=== PATIENT | male | born 1940 | race Caucasian/White ===

== ENCOUNTER → 2016-12-14 | Outpatient (CLI) | payer MEDICARE, OTHER ==
[~2016-12-14] MED LIST: AMIO200T PO; ASPI-496 PO; ASPI-650 PO; DOCU-131 PO; ENAL20TA PO; FURO-92 PO; HYDR-3240 PO; IMIP50TA3 PO; LEVO500T47 PO; METO25TA35 PO; MULT400T5 PO; RABE20TA18 PO; VIT500LI PO
== END | disposition home or self-care (01) ==
LOC: WOUND 13:39
PROVIDERS: ATTEND Internal Medicine Infectious Disease
DX: S81.802A Unspecified open wound, left lower leg, initial encounter (principal); E78.4 Other hyperlipidemia; I10 Essential (primary) hypertension; I70.0 Atherosclerosis of aorta; Z86.718 Personal history of other venous thrombosis and embolism; K21.9 Gastro-esophageal reflux disease without esophagitis; X58.XXXA Exposure to other specified factors, initial encounter; Y93.89 Activity, other specified; Y92.89 Other specified places as the place of occurrence of the external cause; Y99.8 Other external cause status
CPT/HCPCS: 15271; G0463; Q4172; WOU0463

== ENCOUNTER → 2017-01-04 | Outpatient (CLI) | payer MEDICARE, OTHER | END | disposition home or self-care (01) | LOC: WOUND 08:55 | PROVIDERS: ATTEND Internal Medicine | DX: L97.222 Non-pressure chronic ulcer of left calf with fat layer exposed (principal); I10 Essential (primary) hypertension; I70.0 Atherosclerosis of aorta; K21.9 Gastro-esophageal reflux disease without esophagitis; I35.1 Nonrheumatic aortic (valve) insufficiency; E78.00 Pure hypercholesterolemia, unspecified; I25.10 Atherosclerotic heart disease of native coronary artery without angina pectoris; Z95.4 Presence of other heart-valve replacement; Z86.718 Personal history of other venous thrombosis and embolism | CPT/HCPCS: 15271; Q4172 ==

== ENCOUNTER → 2017-01-11 | Outpatient (CLI) | payer MEDICARE, OTHER | END | disposition home or self-care (01) | LOC: WOUND 08:30 | PROVIDERS: ATTEND Internal Medicine | DX: L97.222 Non-pressure chronic ulcer of left calf with fat layer exposed (principal); E78.4 Other hyperlipidemia; I10 Essential (primary) hypertension; I35.1 Nonrheumatic aortic (valve) insufficiency; I70.0 Atherosclerosis of aorta; Z95.4 Presence of other heart-valve replacement; K21.9 Gastro-esophageal reflux disease without esophagitis; I25.10 Atherosclerotic heart disease of native coronary artery without angina pectoris; E78.00 Pure hypercholesterolemia, unspecified; Z86.718 Personal history of other venous thrombosis and embolism | CPT/HCPCS: 97597 ==

== ENCOUNTER → 2017-01-17 | Outpatient (CLI) | payer MEDICARE, OTHER | END | disposition home or self-care (01) | LOC: CFH 08:54 | PROVIDERS: ATTEND Internal Medicine Cardiovascular Disease | DX: R06.00 Dyspnea, unspecified (principal) | CPT/HCPCS: 71020 ==

== ENCOUNTER → 2017-01-18 | Outpatient (CLI) | payer MEDICARE, OTHER | END | disposition home or self-care (01) | LOC: WOUND 08:30 | PROVIDERS: ATTEND Internal Medicine Cardiovascular Disease | DX: L97.222 Non-pressure chronic ulcer of left calf with fat layer exposed (principal); K21.9 Gastro-esophageal reflux disease without esophagitis; E78.4 Other hyperlipidemia; I10 Essential (primary) hypertension; I70.0 Atherosclerosis of aorta; I35.1 Nonrheumatic aortic (valve) insufficiency; I25.10 Atherosclerotic heart disease of native coronary artery without angina pectoris; Z95.4 Presence of other heart-valve replacement; Z86.718 Personal history of other venous thrombosis and embolism | CPT/HCPCS: 29581 ==

== ENCOUNTER → 2017-01-25 | Outpatient (CLI) | payer MEDICARE, OTHER | END | disposition home or self-care (01) | LOC: WOUND 14:25 | PROVIDERS: ATTEND Surgery | DX: L97.222 Non-pressure chronic ulcer of left calf with fat layer exposed (principal); E78.4 Other hyperlipidemia; I10 Essential (primary) hypertension; K21.9 Gastro-esophageal reflux disease without esophagitis; I25.10 Atherosclerotic heart disease of native coronary artery without angina pectoris; E03.9 Hypothyroidism, unspecified; I70.0 Atherosclerosis of aorta; E78.00 Pure hypercholesterolemia, unspecified; Z86.718 Personal history of other venous thrombosis and embolism; Z95.4 Presence of other heart-valve replacement; Z72.89 Other problems related to lifestyle; Z87.891 Personal history of nicotine dependence | CPT/HCPCS: 97597 ==

== ENCOUNTER → 2017-02-01 | Outpatient (CLI) | payer MEDICARE, OTHER | END | disposition home or self-care (01) | LOC: WOUND 08:23 | PROVIDERS: ATTEND Internal Medicine | DX: L97.222 Non-pressure chronic ulcer of left calf with fat layer exposed (principal); I70.0 Atherosclerosis of aorta; I10 Essential (primary) hypertension; E78.00 Pure hypercholesterolemia, unspecified; I35.1 Nonrheumatic aortic (valve) insufficiency; K21.9 Gastro-esophageal reflux disease without esophagitis; I25.10 Atherosclerotic heart disease of native coronary artery without angina pectoris; Z86.718 Personal history of other venous thrombosis and embolism; Z87.891 Personal history of nicotine dependence; Z72.89 Other problems related to lifestyle | CPT/HCPCS: 97597 ==

== ENCOUNTER → 2017-02-16 | Outpatient (CLI) | payer MEDICARE, OTHER | END | disposition home or self-care (01) | LOC: WOUND 08:30 | PROVIDERS: ATTEND Internal Medicine | DX: L97.222 Non-pressure chronic ulcer of left calf with fat layer exposed (principal); I70.0 Atherosclerosis of aorta; I10 Essential (primary) hypertension; I35.1 Nonrheumatic aortic (valve) insufficiency; K21.9 Gastro-esophageal reflux disease without esophagitis; I25.10 Atherosclerotic heart disease of native coronary artery without angina pectoris; E78.00 Pure hypercholesterolemia, unspecified; E03.9 Hypothyroidism, unspecified; Z86.718 Personal history of other venous thrombosis and embolism; Z95.4 Presence of other heart-valve replacement; Z72.89 Other problems related to lifestyle | CPT/HCPCS: G0463; WOU0463 ==

== ENCOUNTER → 2017-05-25 | Outpatient (CLI) | payer MEDICARE, OTHER | END | disposition home or self-care (01) | LOC: CARD 12:19 | PROVIDERS: ATTEND Nurse Practitioner Family | DX: R06.02 Shortness of breath (principal) | CPT/HCPCS: 94060; 94726; 94729 ==

== ENCOUNTER → 2018-07-07 | Outpatient (CLI) | payer MEDICARE, OTHER | END | disposition home or self-care (01) | LOC: CVU 12:36 | PROVIDERS: ATTEND Internal Medicine Cardiovascular Disease | DX: I08.8 Other rheumatic multiple valve diseases (principal) | CPT/HCPCS: 93306 ==

== ENCOUNTER 2018-08-09 14:47 | Inpatient (IN) | payer MEDICARE, OTHER ==
[~2018-08-09] VITALS: Ht 182.9 cm; Wt 87.0 kg
--- NOTE | 2018-08-09 14:57 | NUR ---
LEFT ARM 104/56, RIGHT ARM 109/54
--- NOTE | 2018-08-09 15:08 | NUR ---
PT RESTING COMFORTABLE IN ROOM W . VS STABLE. AFREBILE. NO PAIN OR ANY OTHER COMPLAINTS. WILL CONTINUE TO MONITOR AND WAIT FOR MD ORDERS
[2018-08-09 15:46] LABS: MEAN CORPUSCULAR HEMOGLOBIN 34.6 pg (27.5-34.5); MEAN CORPUSCULAR HGB CONC 32.7 g/dL (33.2-36.2); MEAN CORPUSCULAR VOLUME 105.6 fL (81-97); MEAN PLATELET VOLUME 7.6 fL (7.4-10.4); PLATELET COUNT 159 x10^3/uL (130-400); RED BLOOD COUNT 4.63 x10^6/uL (4.38-5.82); RED CELL DISTRIBUTION WIDTH 13.9 % (9.4-14.8)
[2018-08-09 15:59] LABS: ALBUMIN 3.3 g/dL (3.4-5.0); ANION GAP 8 mmol/L (5-15); CHLORIDE 100 mmol/L (98-107)
[2018-08-09 16:04] LABS: TROPONIN I 0.059 ng/mL (0.000-0.045)
[2018-08-09 16:11] LABS: BASOPHILS # (AUTO) 0.02 x10^3/uL (0-0.1); BASOPHILS % (AUTO) 0 % (0-1); EOSINOPHILS % (AUTO) 0 % (1-7); LYMPHOCYTES % (AUTO) 4 % (22-44); MD SCAN; MONOCYTES # (AUTO) 0.72 x10^3/uL (0.2-0.8); MONOCYTES % (AUTO) 6 % (2-9); NEUTROPHILS # (AUTO) 11.42 x10^3/uL (1.8-6.8); NEUTROPHILS % (AUTO) 90 % (42-75)
[2018-08-09 16:26] LABS: MICROSCOPIC INDICATED
[2018-08-09] MEDS ORDERED: OMNIPAQUE 350 MG/ML, 100ML BOTTLE ONE (16:43)
[2018-08-09 17:05] LABS: CULTURE INDICATED? YES
--- NOTE | 2018-08-09 17:22 | NUR ---
PT AMBULATED TO BATHROOM W RN. IS TO TAKE BELONGINGS.
[2018-08-09] MEDS ORDERED: FURO20TA3 PO (17:59)
[2018-08-09] MEDS ORDERED: AMIO200T42 PO (17:59)
[2018-08-09] MEDS ORDERED: TAMS-11 PO (17:59)
[2018-08-09] MEDS ORDERED: LEVO75TA PO (17:59)
[2018-08-09] MEDS ORDERED: CEFTRIAXONE PMX 1GM/50ML 50 ML IV ONE (18:00)
--- NOTE | 2018-08-09 18:03 | NUR ---
BLOOD CULTURES DONE. HOME MEDS REVIEWED. PT COMFORTABLE
[2018-08-09] MEDS ORDERED: AZITHROMYCIN 500 MG in SODIUM CHLORIDE 0.9% 250 ML IV ONE (18:30)
[2018-08-09] MEDS ORDERED: ACETAMINOPHEN 325 MG TABLET PO PRN (18:30)
[2018-08-09] MEDS ORDERED: ONDANSETRON 2MG/ML, 2ML IVPush PRN (18:30)
[2018-08-09] MEDS ORDERED: GUAIFENESIN/DM 200-20MG, 10ML UDC PO PRN (18:30)
[2018-08-09] MEDS ORDERED: NITROGLYCERIN 0.4 MG BOTTLE (25 TABS) SL PRN (18:30)
[2018-08-09] MEDS ORDERED: morphine SULFATE 10 MG/ML, 1ML IVPush PRN (18:30)
[2018-08-09] MEDS: AZITHROMYCIN 500 MG in SODIUM CHLORIDE 0.9% 250 ML IV SCH (18:30)
[2018-08-09] MEDS ORDERED: BISACODYL 10 MG SUPP PR PRN (18:30)
[2018-08-09] MEDS ORDERED: POLYETHYLENE GLYCOL 17 GM PACKET PO PRN (18:30)
[2018-08-09] MEDS ORDERED: HYDROcodone/APAP 5/325 TABLET PO PRN (18:30)
--- NOTE | 2018-08-09 18:50 | NUR ---
REPORT GIVEN TO FRANCO ON TELE. ABX INFUSING. PT COMFORTABLE. VS STABLE
--- NOTE | 2018-08-09 19:00 | NUR ---
REPORT OF PT FROM DILSHAD DUNCAN AND ASSUMING CARE OF PT AT THIS TIME.
[2018-08-09] MEDS ORDERED: HEPARIN 5,000 UNITS/ML, 1ML IV ONE (19:30)
[2018-08-09 20:00] VITALS: BP 126/75
[2018-08-09 22:06] LABS: TROPONIN I 0.046 ng/mL (0.000-0.045)
[2018-08-09] MEDS: HEPARIN 25,000 UNITS/500ML PMX 500 ML IV PRN (22:16)
[2018-08-09] MEDS: ENALAPRIL 20MG TABLET PO SCH (22:33)
[2018-08-09] MEDS: METOPROLOL TARTRATE 25 MG TABLET PO SCH (22:37)
[2018-08-09] MEDS: AMIODARONE 200 MG TABLET PO SCH (22:38)
[2018-08-09] MEDS: PANTOPROZOLE 40MG TABLET PO SCH (22:38)
[2018-08-09] MEDS: SODIUM CHLORIDE 0.9% 1,000 ML IV SCH (23:11)
[2018-08-10 00:57] VITALS: BP 132/72
[2018-08-10 04:48] LABS: MEAN CORPUSCULAR HEMOGLOBIN 35.9 pg (27.5-34.5); MEAN CORPUSCULAR HGB CONC 33.7 g/dL (33.2-36.2); MEAN CORPUSCULAR VOLUME 106.5 fL (81-97); MEAN PLATELET VOLUME 7.9 fL (7.4-10.4); PLATELET COUNT 156 x10^3/uL (130-400); RED CELL DISTRIBUTION WIDTH 13.8 % (9.4-14.8)
[2018-08-10 05:02] LABS: CHLORIDE 100 mmol/L (98-107)
[2018-08-10 05:08] LABS: ALANINE AMINOTRANSFERASE 39 U/L (12-78); ALBUMIN 2.4 g/dL (3.4-5.0); ALKALINE PHOSPHATASE 88 U/L (45-117); ANION GAP 7 mmol/L (5-15); BILIRUBIN,TOTAL 0.8 mg/dL (0.2-1.0); CALCIUM 8.1 mg/dL (8.5-10.1); CHOL/HDL RATIO 2.3; CHOLESTEROL, TOTAL 61 mg/dL (140-239); CREATININE 1.17 mg/dL (0.7-1.3); HDL CHOL % 43 % (26-37); HDL CHOLESTEROL (DIRECT) 26 mg/dL (40-60); LDL CHOLESTEROL,CALCULATED 23 mg/dL (54-169); LDL/HDL RATIO 0.9 (0.5-3.0); TRIGLYCERIDES 62 mg/dL (50-200); TROPONIN I 0.037 ng/mL (0.000-0.045); VLDL CHOLESTEROL 12 mg/dL (0-25)
[2018-08-10 05:38] LABS: BASOPHILS % (AUTO) 0 % (0-1); EOSINOPHILS % (AUTO) 0 % (1-7); LYMPHOCYTES # (AUTO) 0.42 x10^3/uL (1-3.4); LYMPHOCYTES % (AUTO) 4 % (22-44); MD SCAN; MONOCYTES # (AUTO) 0.42 x10^3/uL (0.2-0.8); MONOCYTES % (AUTO) 4 % (2-9); NEUTROPHILS # (AUTO) 9.04 x10^3/uL (1.8-6.8); NEUTROPHILS % (AUTO) 92 % (42-75)
[2018-08-10] MEDS: ASPIRIN 81 MG TABLET EC PO SCH (06:06)
[2018-08-10] MEDS: HEPARIN 5,000 UNITS/ML, 1ML IV PRN ×3 (06:06→21:52)
[2018-08-10] MEDS: LEVOTHYROXINE 75 MCG TABLET PO SCH (06:06)
[2018-08-10] MEDS: METOPROLOL TARTRATE 25 MG TABLET PO SCH ×2 (06:09→18:04)
[2018-08-10 07:35] VITALS: BP 136/73
[2018-08-10] MEDS: SENNA/DOCUSATE TABLET PO SCH (08:39)
[2018-08-10] MEDS: PANTOPROZOLE 40MG TABLET PO SCH ×2 (08:39→21:49)
[2018-08-10] MEDS: AMIODARONE 200 MG TABLET PO SCH ×2 (08:40→21:49)
[2018-08-10] MEDS: MULTIVITAMIN 1 TABLET PO SCH (08:41)
[2018-08-10] MEDS: ASCORBIC ACID 500 MG TABLET PO SCH ×2 (08:41→08:46)
[2018-08-10] MEDS: TAMSULOSIN 0.4 MG CAP.ER.24H PO SCH (08:41)
[2018-08-10] MEDS: ENALAPRIL 20MG TABLET PO SCH ×2 (08:41→21:49)
[2018-08-10] MEDS: IMIPRAMINE 50 MG TABLET PO SCH ×2 (08:42→08:46)
[2018-08-10] MEDS ORDERED: FUROSEMIDE 20 MG TABLET PO SCH (09:00)
[2018-08-10] MEDS: SODIUM CHLORIDE 0.9% 1,000 ML IV SCH (09:10)
[2018-08-10] MEDS ORDERED: MAGNESIUM SULFATE PMX 2GM/50ML 50 ML IV ONE (10:00)
[2018-08-10 13:25] VITALS: BP 137/71
[2018-08-10] MEDS ORDERED: CEFTRIAXONE PMX 1GM/50ML 50 ML IV SCH (18:00)
[2018-08-10] MEDS: AZITHROMYCIN 500 MG in SODIUM CHLORIDE 0.9% 250 ML IV SCH (18:03)
[2018-08-10 19:14] VITALS: BP 132/75
[2018-08-10] MEDS: HEPARIN 25,000 UNITS/500ML PMX 500 ML IV PRN (21:56)
[2018-08-11 01:15] VITALS: BP 136/66
[2018-08-11 05:29] LABS: BASOPHILS # (AUTO) 0.01 x10^3/uL (0-0.1); BASOPHILS % (AUTO) 0 % (0-1); EOSINOPHILS % (AUTO) 0 % (1-7); LYMPHOCYTES # (AUTO) 0.54 x10^3/uL (1-3.4); LYMPHOCYTES % (AUTO) 7 % (22-44); MD NO; MEAN CORPUSCULAR HEMOGLOBIN 35.1 pg (27.5-34.5); MEAN CORPUSCULAR HGB CONC 33.2 g/dL (33.2-36.2); MEAN CORPUSCULAR VOLUME 105.7 fL (81-97); MEAN PLATELET VOLUME 8.1 fL (7.4-10.4); MONOCYTES % (AUTO) 8 % (2-9); NEUTROPHILS # (AUTO) 6.67 x10^3/uL (1.8-6.8); NEUTROPHILS % (AUTO) 85 % (42-75); PLATELET COUNT 159 x10^3/uL (130-400); RED BLOOD COUNT 4.07 x10^6/uL (4.38-5.82); RED CELL DISTRIBUTION WIDTH 14.4 % (9.4-14.8)
[2018-08-11 05:34] LABS: CHLORIDE 100 mmol/L (98-107)
[2018-08-11 05:40] LABS: ANION GAP 5 mmol/L (5-15); CALCIUM 8.2 mg/dL (8.5-10.1); CREATININE 1.04 mg/dL (0.7-1.3)
[2018-08-11] MEDS: ASPIRIN 81 MG TABLET EC PO SCH (06:22)
[2018-08-11] MEDS: METOPROLOL TARTRATE 25 MG TABLET PO SCH (06:22)
[2018-08-11] MEDS: LEVOTHYROXINE 75 MCG TABLET PO SCH (06:23)
[2018-08-11] MEDS: HEPARIN 5,000 UNITS/ML, 1ML IV PRN (06:23)
[2018-08-11 07:30] VITALS: BP 127/67
[2018-08-11] MEDS: MULTIVITAMIN 1 TABLET PO SCH (08:48)
[2018-08-11] MEDS: ASCORBIC ACID 500 MG TABLET PO SCH (08:48)
[2018-08-11] MEDS: TAMSULOSIN 0.4 MG CAP.ER.24H PO SCH (08:49)
[2018-08-11] MEDS: ENALAPRIL 20MG TABLET PO SCH (08:49)
[2018-08-11] MEDS: PANTOPROZOLE 40MG TABLET PO SCH (08:49)
[2018-08-11] MEDS: AMIODARONE 200 MG TABLET PO SCH (08:50)
[2018-08-11] MEDS: SENNA/DOCUSATE TABLET PO SCH (08:50)
[2018-08-11] MEDS ORDERED: IMIPRAMINE 25 MG TABLET PO SCH (09:00)
[2018-08-11] MEDS ORDERED: FUROSEMIDE 20 MG TABLET PO SCH (09:00)
[2018-08-11] MEDS ORDERED: AZIT500T5 PO (12:08)
[2018-08-11] MEDS ORDERED: APIX5TAB PO (12:08)
[2018-08-11] MEDS ORDERED: CEFD300C37 PO (12:08)
[2018-08-11] MEDS ORDERED: ASPI-515 PO (12:44)
== END 2018-08-11 13:50 | disposition home or self-care (01) | DRG 871 ==
LOC: ED 15:12 → EDIP 17:43 → 5SO 19:02 → DCLOUNGE 08-11 12:54
PROVIDERS: ADMIT Internal Medicine; ATTEND Internal Medicine
DX: A41.9 Sepsis, unspecified organism (principal); J18.1 Lobar pneumonia, unspecified organism; I26.99 Other pulmonary embolism without acute cor pulmonale; I50.33 Acute on chronic diastolic (congestive) heart failure; J96.01 Acute respiratory failure with hypoxia; I47.2 Ventricular tachycardia; D68.69 Other thrombophilia; E87.1 Hypo-osmolality and hyponatremia; D75.89 Other specified diseases of blood and blood-forming organs; E03.9 Hypothyroidism, unspecified; E78.5 Hyperlipidemia, unspecified; I11.0 Hypertensive heart disease with heart failure; I27.20 Pulmonary hypertension, unspecified; I48.2 Chronic atrial fibrillation; N40.0 Benign prostatic hyperplasia without lower urinary tract symptoms; R65.20 Severe sepsis without septic shock; Z80.1 Family history of malignant neoplasm of trachea, bronchus and lung; Z82.49 Family history of ischemic heart disease and other diseases of the circulatory system; Z86.79 Personal history of other diseases of the circulatory system; Z87.891 Personal history of nicotine dependence; Z88.0 Allergy status to penicillin
CPT/HCPCS: 0399T; 36415; 71045; 71275; 80048; 80053; 80061; 81001; 82040; 82607; 83605; 83735; 83880; 84145; 84484; 85025; 85520; 87040; 87086; 93005; 93306; 93970; 96365; G0378; J0456; J0696; J1644; Q9967; J3475; J7030; J7050

== ENCOUNTER 2020-05-25 10:15 | Inpatient (IN) | payer MEDICARE, OTHER ==
[~2020-05-25] VITALS: Ht 182.9 cm; Wt 84.0 kg
[2020-05-25] MEDS: PANTOPRAZOLE 40MG TABLET PO SCH (07:30)
[~2020-05-25 10:15] MED LIST changes: +AMIO100T4 PO; +AMIO200T42 PO; +APIX5TAB PO; +ASPI-1026 PO; -ASPI-650 PO; +ASPI-963 PO; +ATOR10TA9 PO; +AZIT500T10 PO; +CARV3.1212 PO; +CEFD300C37 PO; +ELIQUIS PO; -ENAL20TA PO; +ENAL20TA9 PO; +FURO20TA3 PO; +HYDR-1067 PO; -HYDR-3240 PO; +LEVO75TA PO; +SPIR25TA PO; +TAMS-11 PO
--- NOTE | 2020-05-25 10:17 | NUR ---
HOUSING DEVELOPMENT SPECIALIST: UNABLE TO ASSESS PULSE R/T POOR WAVE FORM. WILL RECHECK IN ROOM.
--- NOTE | 2020-05-25 10:30 | NUR ---
EKG COMPLETED IN ROOM. RA SAT IN ROOM 93-96%. PT PLACED ON ALL ROOM MONITORING. AT BS. CALL LIGHT WITHIN REACH.
[2020-05-25] MEDS ORDERED: DESL5TAB PO (10:58)
[2020-05-25] MEDS ORDERED: AMIO100T4 PO (10:58)
[2020-05-25 11:04] LABS: BASOPHILS % (AUTO) 3 % (0-1); EOSINOPHILS % (AUTO) 1 % (1-7); LYMPHOCYTES % (AUTO) 22 % (22-44); MEAN CORPUSCULAR HEMOGLOBIN 34.9 pg (27.5-34.5); MEAN CORPUSCULAR HGB CONC 33.4 g/dL (33.2-36.2); MEAN PLATELET VOLUME 7.2 fL (7.4-10.4); MONOCYTES % (AUTO) 12 % (2-9); NEUTROPHILS % (AUTO) 62 % (42-75); PLATELET COUNT 194 x10^3/uL (130-400); RED BLOOD COUNT 4.48 x10^6/uL (4.38-5.82); RED CELL DISTRIBUTION WIDTH 13.3 % (9.4-14.8)
[2020-05-25 11:05] LABS: MD NO
[2020-05-25 11:15] LABS: ALANINE AMINOTRANSFERASE 25 U/L (12-78); ALBUMIN 3.7 g/dL (3.4-5.0); ANION GAP 3 mmol/L (5-15); CALCIUM 8.9 mg/dL (8.5-10.1); CHLORIDE 106 mmol/L (98-107); CREATININE 1.15 mg/dL (0.7-1.3)
[2020-05-25 11:19] LABS: ALKALINE PHOSPHATASE 115 U/L (45-117); BILIRUBIN,TOTAL 1.4 mg/dL (0.2-1.0); TOTAL PROTEIN 7.2 g/dL (6.4-8.2); TROPONIN I 0.022 ng/mL (0.000-0.045)
--- NOTE | 2020-05-25 11:45 | NUR ---
PT EXPRESSING WISH TO GO HOME, NOT BE ADMITTED. HOLD ON PLACING IV AT THIS TIME. ERP NOTIFIED.
[2020-05-25] MEDS ORDERED: SODIUM CHLORIDE FLUSH 10ML SYR IVF ONE (12:00)
[2020-05-25] MEDS ORDERED: FUROSEMIDE 40 MG/4 ML IV ONE (12:00)
--- NOTE | 2020-05-25 12:26 | NUR ---
PT TESTED WITH PORTABLE PULSE OX AMBULATING IN [facility]. RA SAT RANGED FROM 98% AND RAPIDLY DECREASED WITHIN 12 FEET OF AMBULATION WITH PULSE OX READING AT 80% BY RETURN TO ROOM (APPROX 20 FEET). ERP NOTIFIED.
[2020-05-25] MEDS ORDERED: FUROSEMIDE 20 MG/2 ML ONE (13:00)
--- NOTE | 2020-05-25 13:06 | NUR ---
IV PLACED, PT MEDICATED PER ERP ORDER. URINAL AVAILABLE AT BS. [facility] IN TO SEE PT.
[2020-05-25] MEDS ORDERED: ENALAPRILAT 1.25 MG/ML, 2ML IVPush PRN (13:30)
[2020-05-25] MEDS ORDERED: hydrALAzine 20 MG/ML, 1ML IVPush PRN (13:30)
[2020-05-25] MEDS ORDERED: ACETAMINOPHEN 325 MG TABLET PO PRN (13:30)
[2020-05-25] MEDS ORDERED: MELATONIN 5 MG TABLET PO PRN (13:30)
[2020-05-25] MEDS ORDERED: ONDANSETRON ODT 4 MG PO PRN (13:30)
[2020-05-25] MEDS ORDERED: POLYETHYLENE GLYCOL 17 GM PACKET PO PRN (13:30)
[2020-05-25] MEDS ORDERED: ONDANSETRON 2MG/ML, 2ML IVPush PRN (13:30)
[2020-05-25] MEDS ORDERED: BISACODYL 10 MG SUPP PR PRN (13:30)
[2020-05-25] MEDS ORDERED: FURO20TA3 PO (13:49)
--- NOTE | 2020-05-25 13:58 | NUR ---
REPORT TO BRANDY CALVERT READY FOR TRANSPORT TO FLOOR.
[2020-05-25 15:14] VITALS: BP 137/75
[2020-05-25] MEDS: CARVEDILOL 3.125 MG TABLET PO SCH (17:39)
[2020-05-25] MEDS: FUROSEMIDE 40 MG/4 ML IV SCH (17:39)
[2020-05-25 17:44] VITALS: BP 137/75
[2020-05-25 18:00] VITALS: BP 143/72
[2020-05-25 18:20] VITALS: BP 116/74
[2020-05-25 18:53] LABS: TROPONIN I 0.031 ng/mL (0.000-0.045)
[2020-05-25] MEDS: ATORVASTATIN 20 MG TABLET PO SCH (20:34)
[2020-05-25] MEDS: FAMOTIDINE 40 MG TABLET PO SCH (20:34)
[2020-05-25] MEDS: TAMSULOSIN 0.4 MG CAP.ER.24H PO SCH (20:34)
[2020-05-25] MEDS: CETIRIZINE 10 MG TABLET PO SCH (20:35)
[2020-05-25] MEDS: APIXABAN 5 MG TABLET PO SCH (20:35)
[2020-05-26 02:04] VITALS: BP 106/61
[2020-05-26] MEDS: LEVOTHYROXINE 75 MCG TABLET PO SCH (05:24)
[2020-05-26] MEDS: CARVEDILOL 3.125 MG TABLET PO SCH ×2 (05:25→18:05)
[2020-05-26 05:52] LABS: BASOPHILS % (AUTO) 1 % (0-1); EOSINOPHILS % (AUTO) 2 % (1-7); LYMPHOCYTES % (AUTO) 26 % (22-44); MEAN CORPUSCULAR HGB CONC 34.3 g/dL (33.2-36.2); MONOCYTES % (AUTO) 12 % (2-9); NEUTROPHILS % (AUTO) 59 % (42-75); PLATELET COUNT 188 x10^3/uL (130-400); RED BLOOD COUNT 4.37 x10^6/uL (4.38-5.82); RED CELL DISTRIBUTION WIDTH 12.9 % (9.4-14.8)
[2020-05-26 05:58] LABS: ANION GAP 4 mmol/L (5-15); CHLORIDE 105 mmol/L (98-107)
[2020-05-26 06:12] LABS: CREATININE 1.19 mg/dL (0.7-1.3)
[2020-05-26 06:35] LABS: MD MORPH REVIEW ONLY
[2020-05-26 06:36] LABS: <PLATELET ESTIMATE> ADEQUATE; <PLT MORPHOLOGY> NORMAL PLT MORPH
[2020-05-26 07:15] VITALS: BP 123/63
[2020-05-26] MEDS: MULTIVITAMIN 1 TABLET PO SCH (08:49)
[2020-05-26] MEDS: FUROSEMIDE 40 MG/4 ML IV SCH ×2 (08:49→18:04)
[2020-05-26] MEDS: PANTOPRAZOLE 40MG TABLET PO SCH (08:49)
[2020-05-26] MEDS: TAMSULOSIN 0.4 MG CAP.ER.24H PO SCH ×2 (08:50→20:20)
[2020-05-26] MEDS: AMIODARONE 200 MG TABLET PO SCH (08:50)
[2020-05-26] MEDS: APIXABAN 5 MG TABLET PO SCH ×2 (08:50→20:20)
[2020-05-26] MEDS: SENNA/DOCUSATE TABLET PO SCH (08:51)
[2020-05-26] MEDS: ASCORBIC ACID 500 MG TABLET PO SCH (08:53)
[2020-05-26] MEDS: IMIPRAMINE 25 MG TABLET PO SCH (10:37)
[2020-05-26 12:35] VITALS: BP 123/62
[2020-05-26] MEDS: SPIRONOLACTONE 25 MG TABLET PO SCH (18:05)
[2020-05-26 19:52] VITALS: BP 117/71
[2020-05-26] MEDS: ATORVASTATIN 20 MG TABLET PO SCH (20:20)
[2020-05-26] MEDS: CETIRIZINE 10 MG TABLET PO SCH (20:20)
[2020-05-26] MEDS: FAMOTIDINE 40 MG TABLET PO SCH (20:20)
[2020-05-27 00:54] VITALS: BP 104/61
[2020-05-27 04:50] LABS: ANION GAP 3 mmol/L (5-15); CALCIUM 8.7 mg/dL (8.5-10.1); CHLORIDE 105 mmol/L (98-107); CREATININE 1.37 mg/dL (0.7-1.3)
[2020-05-27] MEDS: LEVOTHYROXINE 75 MCG TABLET PO SCH (06:18)
[2020-05-27 07:23] VITALS: BP 103/61
[2020-05-27] MEDS: PANTOPRAZOLE 40MG TABLET PO SCH (07:54)
[2020-05-27] MEDS: CARVEDILOL 3.125 MG TABLET PO SCH ×2 (07:55→18:18)
[2020-05-27] MEDS: ASCORBIC ACID 500 MG TABLET PO SCH (09:35)
[2020-05-27] MEDS: MULTIVITAMIN 1 TABLET PO SCH (09:35)
[2020-05-27] MEDS: TAMSULOSIN 0.4 MG CAP.ER.24H PO SCH ×2 (09:35→20:13)
[2020-05-27] MEDS: SENNA/DOCUSATE TABLET PO SCH (09:37)
[2020-05-27] MEDS: AMIODARONE 200 MG TABLET PO SCH (09:37)
[2020-05-27] MEDS: APIXABAN 5 MG TABLET PO SCH ×2 (09:37→20:13)
[2020-05-27] MEDS: SPIRONOLACTONE 25 MG TABLET PO SCH (09:37)
[2020-05-27] MEDS: IMIPRAMINE 25 MG TABLET PO SCH (09:38)
[2020-05-27 09:41] VITALS: BP 111/68
[2020-05-27 12:58] VITALS: BP 130/67
[2020-05-27] MEDS: SODIUM CHLORIDE 0.9% 1,000 ML IV SCH (13:00)
[2020-05-27] MEDS ORDERED: MIDAZOLAM 1 MG/ML, 5ML ONE (14:17)
[2020-05-27] MEDS ORDERED: NITROGLYCERIN 5 MG/ML, 10ML ONE (14:17)
[2020-05-27] MEDS ORDERED: LIDOCAINE 2%, 20ML ONE (14:17)
[2020-05-27] MEDS ORDERED: HEPARIN 1,000 UNITS/ML, 10ML ONE (14:17)
[2020-05-27] MEDS ORDERED: VERAPAMIL 2.5 MG/ML, 2ML ONE (14:17)
[2020-05-27] MEDS ORDERED: BIVALIRUDIN 250 MG ONE (14:17)
[2020-05-27] MEDS ORDERED: TICAGRELOR 90 MG TABLET ONE (14:17)
[2020-05-27] MEDS ORDERED: FENTANYL PF 100 MCG/2ML ONE (14:17)
[2020-05-27 18:09] VITALS: BP 137/80
[2020-05-27] MEDS: FAMOTIDINE 40 MG TABLET PO SCH (20:13)
[2020-05-27] MEDS: CETIRIZINE 10 MG TABLET PO SCH (20:13)
[2020-05-27] MEDS: ATORVASTATIN 20 MG TABLET PO SCH (20:13)
[2020-05-28 01:00] VITALS: BP 135/67
[2020-05-28 05:26] VITALS: BP 104/56
[2020-05-28] MEDS: LEVOTHYROXINE 75 MCG TABLET PO SCH (05:27)
[2020-05-28] MEDS: CARVEDILOL 3.125 MG TABLET PO SCH (05:27)
[2020-05-28 05:38] LABS: ANION GAP 4 mmol/L (5-15); CHLORIDE 104 mmol/L (98-107); CREATININE 1.11 mg/dL (0.7-1.3)
[2020-05-28 08:00] VITALS: BP 110/66
[2020-05-28] MEDS: SENNA/DOCUSATE TABLET PO SCH (08:13)
[2020-05-28] MEDS: IMIPRAMINE 25 MG TABLET PO SCH (08:14)
[2020-05-28] MEDS: ASCORBIC ACID 500 MG TABLET PO SCH (08:14)
[2020-05-28] MEDS: PANTOPRAZOLE 40MG TABLET PO SCH (08:14)
[2020-05-28] MEDS: SPIRONOLACTONE 25 MG TABLET PO SCH (08:17)
[2020-05-28] MEDS: AMIODARONE 200 MG TABLET PO SCH (08:17)
[2020-05-28] MEDS: MULTIVITAMIN 1 TABLET PO SCH (08:17)
[2020-05-28] MEDS: TAMSULOSIN 0.4 MG CAP.ER.24H PO SCH (08:17)
[2020-05-28] MEDS: SODIUM CHLORIDE 0.9% 1,000 ML IV SCH (08:18)
[2020-05-28] MEDS: APIXABAN 5 MG TABLET PO SCH (08:18)
[2020-05-28] MEDS ORDERED: SPIR25TA PO (09:40)
== END 2020-05-28 10:45 | disposition home health service (06) | DRG 286 ==
LOC: ED 11:27 → EDIP 12:41 → 5SO 14:18 → DCLOUNGE 05-28 10:37
PROVIDERS: ADMIT Hospitalist; ATTEND Hospitalist
PROC: 4A023N7 Measurement of Cardiac Sampling and Pressure, Left Heart, Percutaneous Approach (ICD-10-PCS; principal; 2020-05-27)
PROC: B2111ZZ Fluoroscopy of Multiple Coronary Arteries using Low Osmolar Contrast (ICD-10-PCS; 2020-05-27)
DX: I11.0 Hypertensive heart disease with heart failure (principal); J96.01 Acute respiratory failure with hypoxia; I47.2 Ventricular tachycardia; I50.43 Acute on chronic combined systolic (congestive) and diastolic (congestive) heart failure; Z88.0 Allergy status to penicillin; E03.9 Hypothyroidism, unspecified; E78.5 Hyperlipidemia, unspecified; I08.0 Rheumatic disorders of both mitral and aortic valves; I25.10 Atherosclerotic heart disease of native coronary artery without angina pectoris; I42.9 Cardiomyopathy, unspecified; I27.20 Pulmonary hypertension, unspecified; I44.7 Left bundle-branch block, unspecified; K21.9 Gastro-esophageal reflux disease without esophagitis; N40.0 Benign prostatic hyperplasia without lower urinary tract symptoms; Z66 Do not resuscitate; Z79.01 Long term (current) use of anticoagulants; Z81.1 Family history of alcohol abuse and dependence; Z86.711 Personal history of pulmonary embolism; Z86.79 Personal history of other diseases of the circulatory system; Z87.891 Personal history of nicotine dependence; Z90.79 Acquired absence of other genital organ(s)
CPT/HCPCS: 36415; 71045; 80048; 80053; 83735; 83880; 84443; 84484; 85025; 93005; 93306; 93454; 96374; 99156; C1769; C1894; G0378; J0583; J1644; J1940; J2250; J3010; J7030; Q9967

== ENCOUNTER 2020-07-07 05:58 | Day surgery (SDC) | payer MEDICARE, OTHER ==
[~2020-07-07] VITALS: Ht 182.9 cm; Wt 83.9 kg
[~2020-07-07 05:58] MED LIST changes: +DESL5TAB PO; -HYDR-1067 PO; +HYDR-2214 PO
[2020-07-07] MEDS ORDERED: SODIUM CHLORIDE 0.9% 1,000 ML IV ONE (06:30)
[2020-07-07] MEDS ORDERED: FAMO20TA7 PO (06:36)
[2020-07-07 06:50] VITALS: BP 131/71
[2020-07-07] MEDS ORDERED: PROPOFOL 10 MG/ML, 20ML ONE (08:35)
== END 2020-07-07 09:55 | disposition home or self-care (01) ==
LOC: CACL 05:58
PROVIDERS: ATTEND Internal Medicine Cardiovascular Disease
DX: I34.0 Nonrheumatic mitral (valve) insufficiency (principal); I36.1 Nonrheumatic tricuspid (valve) insufficiency; I37.1 Nonrheumatic pulmonary valve insufficiency; I35.1 Nonrheumatic aortic (valve) insufficiency; I48.91 Unspecified atrial fibrillation; E03.9 Hypothyroidism, unspecified; I11.0 Hypertensive heart disease with heart failure; I50.9 Heart failure, unspecified; I25.10 Atherosclerotic heart disease of native coronary artery without angina pectoris; K21.9 Gastro-esophageal reflux disease without esophagitis; I42.9 Cardiomyopathy, unspecified; E78.49 Other hyperlipidemia; Z88.0 Allergy status to penicillin; Z20.822 Contact with and (suspected) exposure to COVID-19; Z87.891 Personal history of nicotine dependence; Z79.01 Long term (current) use of anticoagulants; Z79.899 Other long term (current) drug therapy; Z72.89 Other problems related to lifestyle
CPT/HCPCS: 87635; 93312; 93321; 93325; J2704

== ENCOUNTER 2020-10-17 10:46 | Outpatient (CLI) | payer MEDICARE, OTHER ==
[~2020-10-17 10:46] MED LIST changes: +ACET325T26 PO; +ASCO-184 PO; +FAMO20TA7 PO; +Metamucil PO
== END 2020-10-17 23:59 | disposition home or self-care (01) ==
LOC: CVU 10:46
PROVIDERS: ATTEND Internal Medicine Cardiovascular Disease
DX: Z01.810 Encounter for preprocedural cardiovascular examination (principal); I08.0 Rheumatic disorders of both mitral and aortic valves; I77.810 Thoracic aortic ectasia; R00.1 Bradycardia, unspecified; I10 Essential (primary) hypertension; E78.00 Pure hypercholesterolemia, unspecified; I65.29 Occlusion and stenosis of unspecified carotid artery; Z87.891 Personal history of nicotine dependence
CPT/HCPCS: 93306; 93356